=== PATIENT | female | born 1945 | race Caucasian/White ===

== ENCOUNTER 2016-12-31 11:30 | Inpatient (IN) | payer MEDICARE, OTHER ==
[~2016-12-31] VITALS: Ht 154.9 cm; Wt 100.9 kg
[~2016-12-31 11:30] MED LIST: ALBU8.5H2 INHALATION; BECL8.7A5 INHALATION; CHOL200047 PO; FURO40TA4 PO; INSU100V7 SUBQ; KEN25CR EXT; LOSA100T29 PO; METF-496 PO; METO25TA99 PO; VITA400C64 PO; ZOV800 PO
[2016-12-31 14:15] VITALS: BP 139/71; PULSE 45; RESP 16; O2SAT 95
--- NOTE | 2016-12-31 16:24 | NUR ---
Direct admit Pt. arrived to [facility] about 1350. VSS. Afebrile. See admit for assessment. IV started per tele protocol. BG 134. Denies chest discomfort, dizziness, SOB or any other symptoms. Tele SR-SB at this time. Dr. Dickson's office contacted for H+P and orders. H+P received but not orders. Report called to Lali Arnold RN. Transported to 2026 via w/c with all belongings at 1624.
[2016-12-31 16:36] VITALS: BP 177/83; PULSE 68; RESP 18; O2SAT 96
[2016-12-31 16:53] VITALS: PULSE 71
[2016-12-31 17:40] LABS: APPEARANCE,URINE HAZY (CLEAR,HAZY); COLOR,URINE YELLOW (YELLOW); OCCULT BLOOD,URINE NEGATIVE (NEGATIVE); PH,URINE 5.5 (5.0-8.0); UROBILINOGEN,URINE NORMAL (NORMAL)
[2016-12-31] MEDS ORDERED: 0.9% Sodium Chloride 1,000 ML IV PRN (17:56)
[2016-12-31] MEDS ORDERED: CeFAZolin Inj 1 GM in IV Premix 1 EACH IV ONE (18:00)
[2016-12-31] MEDS ORDERED: Alum-Mag Hydrox-Simeth 30 mL Suspension PO PRN (18:05)
[2016-12-31] MEDS ORDERED: Ondansetron 2 mg/mL 2 mL Inj IVPUSH PRN (18:05)
[2016-12-31 18:08] LABS: BASOPHILS % (AUTO) 0.3 % (0-3); EOSINOPHILS % (AUTO) 3.7 % (0-5); MONOCYTES % (AUTO) 6.7 % (4-12); Mean Corpuscular Hemoglobin 30.2 pg (27.0-35.0); Mean Corpuscular Volume 86.3 fL (81-100); NEUTROPHILS % (AUTO) 56.9 % (40-74); Platelet Count 231 bil/L (150-400)
[2016-12-31] MEDS ORDERED: INSU100I18 SUBQ (18:08)
[2016-12-31] MEDS ORDERED: COLC0.6T55 PO (18:08)
[2016-12-31] MEDS ORDERED: ATOR40TA69 PO (18:08)
[2016-12-31] MEDS ORDERED: CLOP75TA28 PO (18:08)
[2016-12-31] MEDS ORDERED: INSU100I13 SUBQ (18:08)
[2016-12-31 18:10] LABS: INR 0.98 ratio
[2016-12-31] MEDS ORDERED: LOSA25TA21 PO (18:10)
[2016-12-31] MEDS ORDERED: TIOT18CA3 INHALATION (18:12)
[2016-12-31] MEDS ORDERED: OMEG1CAP99 PO (18:13)
--- NOTE | 2016-12-31 18:21 | NUR ---
Admit Pt admitted to [facility] at 1730. A&O X3. Answering questions appropriately and able to make needs known. IV in L hand patent. On RA. CBG 78. Pt ambulated easily from the wheelchair to the bed. Steady on her feet. Also ambulated to the toilet where she voided with no issue. Last BM yesterday. No c/o pain or discomfort.
[2016-12-31] MEDS ORDERED: ACET325C PO (18:23)
[2016-12-31] MEDS ORDERED: ASPI-973 PO (18:23)
--- NOTE | 2016-12-31 19:29 | NUR ---
Cefazolin Order was entered for Cefazolin IV to be given tonight. This RN received verbal order from to NOT give the IV Cephazolin tonight since she will be getting it tomorrow (01/01) just prior to her procedure along with NS. This info also passed along to NOC RN.
[2016-12-31 20:32] VITALS: BP 135/81; PULSE 70; RESP 19; O2SAT 93
--- NOTE | 2016-12-31 22:20 | HP ---
[address] [address] HISTORY AND PHYSICAL PATIENT: JOSH APONTE : 1945 MR#: [id number] ADMIT: 12/31/2016 JOB ID: [id number] DATE: 12/31/2016 REASON FOR ADMISSION: Sick sinus syndrome. HISTORY OF PRESENT ILLNESS: The patient is a delightful 71-year-old woman with a known history of severe critical aortic stenosis status post TAVR approximately six months ago, history of hypertension and diabetes who was seen in the office for new onset second-degree type II AV block. The patient underwent a transcutaneous aortic valve replacement procedure approximately six months ago at [facility]. She was undergoing cardiac rehab when she was noted to have second-degree type II AV block in the setting of sinus bradycardia. I received a phone call from the cardiac rehab service line nurse who informed me about her condition. I advised her to come back and see me in the office today. In the office, she reported no significant symptoms of dizziness, presyncope or syncope, however, she did report overall lethargy and fatigue. She was evaluated in the office and to further assess her underlying rhythm, an exercise treadmill stress test was ordered. She was noted to have an elevated blood pressure of 180/80. An exercise treadmill stress test was performed. She barely walked for 2-3 minutes. She had an underlying sinus rhythm. An alternating right bundle-branch block and left bundle-branch block was noted. At high rates, a left bundle-branch block was noted. There were episodes of transient second-degree AV block 2:1. Patient could not increase her heart rate and was significantly fatigued and tired and short of breath. Given she has a history of TAVR, I suspected sick sinus syndrome with chronotropic incompetence. At that time, several options were discussed with the patient. The patient first preferred that she would stop her beta donavon, however, given her abnormal stress test, we gave her the option of option of admission to the hospital for permanent pacemaker implantation. Given a history of TAVR, there is a high likelihood of AV node involvement secondary to prosthetic valve in the aortic annulus. Given that, she was asked to go to [facility]. ALLERGIES: 1. VENLAFAXINE. 2. HYDROCODONE. PAST MEDICAL HISTORY: Significant for severe critical aortic stenosis, insulin-requiring diabetes, hypertension, obesity. CURRENT MEDICATIONS: 1. Losartan 50 mg daily. 2. Metformin 1000 mg 1 tablet two times every day. 3. Metoprolol 12.5 mg two times daily. 4. Acyclovir 800 mg 3 times daily. 5. Albuterol inhaler two puffs every 4-6 hours. 6. Spiriva 1 capsule inhalation daily. 7. Clopidogrel 75 mg daily. 8. Atorvastatin 40 mg daily. 9. Aspirin 81 mg daily. 10. Insulin Lantus 40 units subcu q.h.s. 11. Insulin lispro 4-6 units subcutaneous b.i.d. 12. Vitamin D3 2000 units daily. PAST SURGICAL HISTORY: TAVR June 2016. REVIEW OF SYSTEMS: Significant for overweight, history of fatigue, tiredness, lethargy, shortness of breath. EXAMINATION: Vital signs: Blood pressure is 135/81, pulse of 70. Alert, oriented, not in any distress. Pupils are normal size, normal reaction. Oral: Dental hygiene is marginal. She is edentulous. Neck is soft, supple. There is no lymphadenopathy. There is a soft carotid bruit bilaterally. Chest wall is normal. There is mild kyphoscoliosis. S1-S2 is normal. Prosthetic valve at aortic position. There is a soft systolic murmur in early to mid systole. Abdomen is soft, benign, and nontender. No hepatosplenomegaly. Bowel sounds are present. No organomegaly. Lower extremities are trace pedal edema bilaterally. ASSESSMENT: 1. Sick sinus syndrome. This is a 71-year-old woman status post transcatheter aortic valve replacement (TAVR) six months ago who presented with incidental finding of symptomatic type 2 secondary arteriovenous block with alternating right and left bundle-branch block with activity. Patient has chronotropic incompetence in the setting of sinus bradycardia. Given these findings of fatigue, tiredness and lethargy, the patient was given the option of a permanent pacemaker implantation. Patient takes a very low dose of beta donavon of 12.5 mg XL 1-2 times daily. In addition, she has a wide QRS complex with a QRS duration of 141, consistent with infranodal disease. Typically after TAVR there are 10% cases where people develop AV blocks requiring pacemaker implantation, but that is mostly in the licha-procedural duration. Patient had her TAVR done approximately six months ago. This might be the underlying sick sinus syndrome with association of the infranodal conduction disease as evidenced by AV block, wide QRS complex and alternating right and left bundle-branch block. I went over the risks and benefits of the procedure and gave her the option of permanent pacemaker. The patient wishes to proceed. All the risks and benefits of the procedure were explained to the patient and informed signed consent was obtained and placed in the chart. 2. Hypertension. The patient is currently well controlled on the current medical regimen and does not take any further modifications. 3. Mixed hyperlipidemia. Currently on medication. 4. Type 2 diabetes, insulin-requiring. Her recent hemoglobin A1c is not available. However, Accu-Chek is 104 this evening. I advised her to hold off on her Lantus dose this evening. Patient is to go for procedure tomorrow in the morning. 5. Chronic obstructive pulmonary disease on bronchodilators, clinically stable and quiescent. No further intervention is required at this point. PLAN: 1. Admit to the hospital. Preprocedure orders were given and placed in the chart. Ancef during the periprocedural hydration to be administered, 1 g of Ancef. 2. Patient to hold off on beta blockers. 3. All labs are ordered. Lab results are pending at this time. [facility]
[2017-01-01] VITALS (17 sets, daily range): BP systolic 123–166; BP diastolic 55–91; PULSE 43–85; RESP 12–19; O2SAT 93–98
[2017-01-01] MEDS: Sodium Chloride LOK Flush 10 mL Syringe IVFLUSH SCH ×3 (00:30→16:30)
[2017-01-01] MEDS ORDERED: Heparin 10,000 Unit/1,000 mL NS Premix IV ONE (07:39)
[2017-01-01] MEDS ORDERED: Bupivacaine-MPF 0.5% 30 mL Inj ONE (07:39)
[2017-01-01] MEDS ORDERED: 0.9% Sodium Chloride 250 ML ONE (07:39)
--- NOTE | 2017-01-01 07:45 | NUR ---
Tele/Restful Night Pt tele SBrady w/ rate mostly 40s-60s while pt slept. Pt denies symptoms with this. All other vitals stable. Pt denied pain and appeared to sleep comfortably overnight w/ only complaint being discomfort from bed. 2L NC applied at HS.
[2017-01-01] MEDS ORDERED: fentaNYL-PF 50 mCg/mL 2 mL Inj ONE ×2 (08:29→10:00)
[2017-01-01] MEDS ORDERED: 0.9% Sodium Chloride 1,000 ML IV SCH (11:11)
[2017-01-01] MEDS ORDERED: Ondansetron 2 mg/mL 2 mL Inj IVPUSH PRN (11:15)
--- NOTE | 2017-01-01 11:38 | DRSVH ---
PROCEDURE: X-RAY CHEST ONE VIEW, PORTABLE ([id number]) INDICATIONS: post pacemaker TECHNIQUE: One view of the chest was acquired. COMPARISON: None. FINDINGS: Surgical changes and devices: None. Lungs and pleura: No pleural effusions or pneumothorax. Lungs are clear. Mediastinum: Mediastinal contours appear normal. Heart size is normal. Postoperative changes of th e heart are present with heart valve replacement noted. Bones and chest wall: No suspicious bony lesions. Overlying soft tissues appear unremarkable. IMPRESSION: Essentially unremarkable chest rated graft. No definite pneumothorax is evident. Dictated by: Ko Deleon M.D. on 01/01/2017 at 10:36 Approved by: Ko Deleon M.D. on 01/01/2017 at 10:37
--- NOTE | 2017-01-01 11:47 | NUR ---
DR COVARRUBIAS HERE TO EVALUATE PATIENT.CXR NEGATIVE FOR PNEUMOTHORAX, ALSO CALLED TO PHYSICIAN ATTENTION, THE SWELLING NOTED AT THE LEFT UPPER CHEST SITE, AREA MARKED, PRESSURE DRESSING IS IN PLACE AND 5 LB WEIGHT PLACED ON TOP OF THAT. PT ALSO C/O CENTER CHEST PAIN WITH PAIN THROUGH LEFT BREAST TO LEFT NIPPLE ON DEEP INSPIRATION. DR COVARRUBIAS APPRISED OF THIS.LUNCH ORDERED FOR PATIENT.
[2017-01-01] MEDS: HYDROcodone-APAP 5-325 mg Tablet PO PRN (12:37)
--- NOTE | 2017-01-01 13:04 | NUR ---
Report called to Juan Antonio Stanford R.N. She is stable, left pacemaker site swelling is improved, vicodin given for pain.
--- NOTE | 2017-01-01 13:30 | NUR ---
Patient tx in stable condition.[facility] to [facility] at [facility], swelling at left upper chest pacemaker attempted side is unchanged.
--- NOTE | 2017-01-01 13:52 | NUR ---
Social Work: Initial Assessment D: Per EMR review, pt is a 71 year old female admitted for AVB. Pt is Medicare with [employer]; pt has no LTC insurance. PCP is Tin Matias MD. CHRISTINA Costa, spouse, . Pt declined Advanced Directives from LACQUER SHADER. Readmit score is low, 2/8. LACQUER SHADER met with pt and spouse at bedside. Sw role explained and contact info provided. See initial assessment. Pt lives in a single story home in [place] with her spouse. Pt has approximately 10 steps to enter. Pt has never had HH or skilled rehab. Pt continues to drive and is I with ADLs. Pt and spouse express no concerns about discharge home. Pt is requesting to speak with the pipe crew foreman. LACQUER SHADER provided referral to [facility]. A: Pt who is I at baseline. P: Anticipate pt to discharge home with spouse to transport pending clinical course; LACQUER SHADER to continue to follow. JOSE CARLOS Thomas Addendum: 01/01/17 at 1400 by PEDRO DUNBAR Amended: Links added.
--- NOTE | 2017-01-01 14:02 | PROCED ---
[address] [address] PROCEDURE NOTE PATIENT: JOSH APONTE : 1945 MR#: [id number] ADMIT: 12/31/2016 JOB ID: [id number] DATE OF SERVICE: PREOPERATIVE DIAGNOSIS(ES): POSTOPERATIVE DIAGNOSIS(ES): SURGEON: Socrates Dickson MD. PROCEDURE: 1. Dual-chamber permanent pacemaker implantation. 2. Ultrasound-guided venous access. 3. Contrast venography of the subclavian vein. CONSENT: The patient was explained the risks, benefits and alternatives of the procedure. Informed signed consent was obtained and placed in the chart. INDICATION: The patient is a 71-year-old woman with a post TAVR (aortic valve replacement). Developed transient second-degree type 2 AV block, alternating right and left bundle branch block, with symptoms of fatigue, tiredness and exertional shortness of breath. She also demonstrated chronotropic incompetence on the exercise treadmill stress test. DESCRIPTION OF PROCEDURE: The patient was brought to the catheterization laboratory and placed on the catheterization table. Left infraclavicular area was prepped and draped in the usual sterile manner. Ultrasound mapping was performed. I could not visualize her veins. Therefore, contrast venography was performed. Multiple attempts were made to access the subclavian vein but the left subclavian vein could not be accessed. Subsequently, after achieving topical anesthesia, a 3-inch long surgical incision was made. Skin and subcutaneous layer were dissected. Prepectoralis fascia was identified. Again, I did several attempts to access the subclavian vein through a pacemaker pocket and could not access it. Repeat contrast venography was performed. However the attempts to access the left subclavian vein were unsuccessful. The procedure was aborted. The pacemaker pocket was irrigated with antibiotic solution. The tissue was closed with 2-0 Polysorb sutures. The skin was closed with 3-0 Polysorb sutures. The pressure dressing was applied. The postprocedure x-ray demonstrated no evidence of pneumothorax. Total fluoroscopy time was 19.3 minutes. IMPRESSION: Unsuccessful subclavian vein access with discontinuation of the procedure.
--- NOTE | 2017-01-01 15:04 | NUR ---
PCC Patient departed at 0830 to [facility] to have pacer placed, returned 1330 from unsuccessful placement. Pressure dressing on upper left chest with ice pack c/d/i, placed at 1100 in [facility] to be removed at 1600. Patient given Tylenol 975mg for 5/10 pain, NS at 80mls started for kidney hydration. Patient denies shortness of breath and nausea, eat in [facility] without issues, will be NPO at midnight for Venogram tomorrow at 1230. LABS- Cr 1.38, BUN 32 CVS- SB 40-60 PLUM-RA GI- NPO at midnight, no coverage needed for blood sugars - UA (+) SKIN- Lower bilat edema trace PAIN- 5/10 anterior left shoulder IV NS 80 PLAN- See above note.
[2017-01-01] MEDS: 0.9% Sodium Chloride 1,000 ML IV SCH (17:05)
[2017-01-01] MEDS: Polyethylene Glycol (PEG) 17 Gm Powder PO PRN (20:06)
[2017-01-01] MEDS ORDERED: CeFAZolin Inj 1 GM in IV Premix 1 EACH IV ONE (21:30)
--- NOTE | 2017-01-01 23:00 | NUR ---
Ancef Dr. Dickson called and wanted pt to have Ancef IV dose tonight, he ordered it and was given around 2229.
[2017-01-02] VITALS (8 sets, daily range): BP systolic 136–153; BP diastolic 50–82; PULSE 48–67; RESP 15–19; O2SAT 92–99
[2017-01-02] MEDS: Sodium Chloride LOK Flush 10 mL Syringe IVFLUSH SCH ×4 (00:30→23:51)
[2017-01-02] MEDS: 0.9% Sodium Chloride 1,000 ML IV SCH (04:01)
[2017-01-02] MEDS ORDERED: 0.9% Sodium Chloride 1,000 ML IV PRN (07:29)
[2017-01-02] MEDS ORDERED: CeFAZolin Inj 2 GM in IV Premix 1 EACH IV ONE ×2 (07:30→08:35)
--- NOTE | 2017-01-02 08:14 | PROG NOTE ---
[address] [address] PROGRESS NOTE PATIENT: JOSH APONTE : 1945 MR#: [id number] ADMIT: 12/31/2016 JOB ID: [id number] DATE: 01/02/2017 PROBLEM LIST: 1. Sick sinus syndrome. 2. Failure to access the subclavian vein on January 01, 2017. 3. Status post transcatheter aortic valve replacement (TAVR). 4. Hypertension. 5. Diabetes. 6. Hyperlipidemia. INTERVAL HISTORY: The patient underwent permanent pacemaker implantation yesterday. At the time of procedure, we made several attempts to access the left subclavian vein. We were unsuccessful in accessing the left subclavian vein. Both ultrasound guidance was used as well as radio contrast venography. The patient tolerated the procedure well. She had a pacemaker pocket hematoma. Pressure dressing was applied. The patient was observed. Postprocedure chest x-ray demonstrated no pneumothorax. The patient is scheduled for repeat chest x-ray this morning. On asking, she states that she is doing well. She has some catch when she takes a deep breath. The swelling has significantly reduced. Feeling better. She is sitting up on the chair. In addition to her medications, I gave her a dose of Ancef last night. In addition, I started her on IV fluids. She is feeling well, and she is urinating copious amounts. PHYSICAL EXAMINATION: Vital signs: Blood pressure of 153/82, pulse of 54, regular. No significant pauses or bradyarrhythmias are noted. Chest is clear to auscultation. There is bilateral breath sounds noted. S1, S2 is regular. There is a systolic murmur heard in the right upper sternal area. The abdomen is benign. Lower extremities: Trace pedal edema. PLAN: For the day, she is n.p.o. on-call for pacemaker implantation this afternoon. She is going to get a left subclavian ultrasound with surface mapping. Once mapping is performed, I will perform the permanent pacemaker implantation. The device company has been notified. TIME SPENT: Total time spent, 25 minutes, in reviewing and coordinating her care. ASUL
[2017-01-02] MEDS ORDERED: 0.9% Sodium Chloride 250 ML ONE ×2 (12:18→17:19)
[2017-01-02] MEDS ORDERED: Heparin 10,000 Unit/1,000 mL NS Premix IV ONE ×3 (12:18→17:16)
[2017-01-02] MEDS ORDERED: Water for Injection 50 ML IV ONE (12:18)
[2017-01-02] MEDS ORDERED: Bupivacaine-MPF 0.5% 30 mL Inj ONE ×2 (12:18→17:19)
[2017-01-02] MEDS ORDERED: Albuterol-Ipratropium 3 mL Inhalation Solution ONE (12:49)
[2017-01-02] MEDS: Tiotropium 18mcg/Cap 5 Capsule Inhaler Kit INHALATION SCH (13:20)
--- NOTE | 2017-01-02 13:23 | DRSVH ---
PROCEDURE: X-RAY CHEST ONE VIEW, PORTABLE ([id number]) INDICATIONS: SHORT OF BREATH TECHNIQUE: One view of the chest was acquired. COMPARISON: [facility], CR, XR CHEST 1VW (PORTABLE), 01/01/2017, 11:14. FINDINGS: Surgical changes and devices: None. Lungs and pleura: No pleural effusions or pneumothorax. Lungs are clear. Mediastinum: Mediastinal contours appear normal. Heart size is normal. Bones and chest wall: No suspicious bony lesions. Overlying soft tissues appear unremarkable. IMPRESSION: Stable chest. No acute cardiopulmonary process is suspected. Dictated by: Ko Deleon M.D. on 01/02/2017 at 12:21 Approved by: Ko Deleon M.D. on 01/02/2017 at 12:21
[2017-01-02] MEDS ORDERED: Albuterol-Ipratropium 3 mL Inhalation Solution NEB ONE (13:25)
[2017-01-02] MEDS ORDERED: fentaNYL-PF 50 mCg/mL 2 mL Inj ONE ×4 (13:30→17:48)
--- NOTE | 2017-01-02 13:38 | NUR ---
spiritual care; routine brief visit and prayer as pt apprehensive about procedure (cath) pt appreciative of eucharsitc visitor support.
[2017-01-02] MEDS ORDERED: Phenylephrine/NS-PF 100 mCg/mL 5 mL Syringe IVPUSH ONE (15:32)
[2017-01-02] MEDS ORDERED: DOPamine 800 mg/250 mL D5W Premix IV ONE (16:07)
--- NOTE | 2017-01-02 16:13 | NUR ---
spiritual care: rapid response/blue supportive accompaniment as pt rec care, arturo araujo in dong waiting area. staff aware and updating him.
[2017-01-02] MEDS ORDERED: Atropine 1 mg/10 mL (Code) Syringe ONE (17:16)
[2017-01-02] MEDS ORDERED: 0.9% Sodium Chloride 50 ML ONE (17:20)
--- NOTE | 2017-01-02 22:16 | DRSVH ---
PROCEDURE: X-RAY CHEST ONE VIEW, PORTABLE ([id number]) INDICATIONS: For new leads placed TECHNIQUE: One view of the chest was acquired. COMPARISON: [facility], CR, XR CHEST 1VW (PORTABLE), 01/02/2017, 13:05. FINDINGS: Surgical changes and devices: There is a new left chest wall dual-lead pacemaker the leads projecting over the right atrium and right ventricle. There is also a new curvilinear catheter projecting over the left cardiac contour. Lungs and pleura: There is a small left apical pneumothorax measuring approximately 4 mm. Blunting of the left costophrenic angle is again noted compatible with a small pleural effusion or pleural thi ckening. Mediastinum: Mediastinal contours appear unchanged. Heart size is normal. Bones and chest wall: No suspicious bony lesions. Overlying soft tissues appear unremarkable. IMPRESSION: 1. Small left apical pneumothorax. 2. New pacemaker leads projecting over the right atrium and right ventricle. Findings discussed with Dr. Dickson on 01/02/17 at 10:10 PM. Dictated by: Shayne Jung M.D. on 01/02/2017 at 22:08 Approved by: Shayne Jung M.D. on 01/02/2017 at 22:14
--- NOTE | 2017-01-02 22:18 | NUR ---
Admit note: Pt arrived to room 2019 at approx 1910 per bed from collaborative physician. Pt is Awake alert/orientated c/o left upper chest pain to pacer surgical site. Ice packs were applied to site and pain improving. in room on arrival. monitor applied shows A-paced rhythm. Pt has pericardial drain in place with bloody drainage noted.
[2017-01-03] VITALS (7 sets, daily range): BP systolic 119–134; BP diastolic 54–66; PULSE 60–86; RESP 15–24; O2SAT 92–96
--- NOTE | 2017-01-03 06:49 | NUR ---
pericardial drain/ECG: Pt's rhythm had V-paced and A-paced complex during the night. pericardial drain had minimal output.
[2017-01-03] MEDS: Polyethylene Glycol (PEG) 17 Gm Powder PO PRN ×2 (07:50→22:05)
[2017-01-03] MEDS: HYDROcodone-APAP 5-325 mg Tablet PO PRN ×3 (07:50→16:09)
[2017-01-03] MEDS: Sodium Chloride LOK Flush 10 mL Syringe IVFLUSH SCH ×2 (07:51→16:10)
[2017-01-03] MEDS: CeFAZolin Inj 1 GM in IV Premix 1 EACH IV SCH ×3 (08:01→16:09)
[2017-01-03] MEDS: Tiotropium 18mcg/Cap 5 Capsule Inhaler Kit INHALATION SCH (08:02)
--- NOTE | 2017-01-03 09:55 | DRSVH ---
[facility] [address] [place] [address] Echocardiogram Report Name: JOSH APONTE MStudy [facility] Location: [facility] Gender: Female : 1945 Age: 71 yrs Reason For Study: PERICARDIAL EFFUSION Ordering Physician: Performed By: Evie Polo Interpretation Summary Limited echo performed by Dr. Reed. Only subcostal views obtained due to difficult window. 1. Large pericardial effusion with tamponade physiololgy. Right atrial and ventricular collapse noted. Procedure: This is a lilmited echocardiogram performed in the [employer]. Image quality is poor. The study quality was technically difficult. Pericardium/ Pleura There is a moderate to large pericardial effusion noted. Pericardial effusion is improved s/p pericardial centesis. Electronically signed by: Dr. Socrates Dickson on Reading Physician:01/03/2017 09:54 AM
--- NOTE | 2017-01-03 11:45 | DRSVH ---
PROCEDURE: X-RAY CHEST, TWO VIEWS ([id number]) INDICATIONS: For new lead placement TECHNIQUE: 2 views of the chest were acquired. COMPARISON: [facility], CR, XR CHEST 1VW (PORTABLE), 01/02/2017, 20:33. FINDINGS: Surgical changes and devices: Newly cardiac pacer and stent projecting of the heart are unchanged. Pi gtail catheter, again projects over the heart Lungs and pleura: No pleural effusions or pneumothorax. Lungs are clear. Mediastinum: Mediastinal contours are normal. Heart size is normal. Bones and chest wall: No suspicious bony abnormalities. Soft tissues appear unremarkable. IMPRESSION: Previously identified small left apical pneumothorax not visualized on the current examination. Dictated by: Gonzalez Pierce M.D. on 01/03/2017 at 11:41 Approved by: Gonzalez Pierce M.D. on 01/03/2017 at 11:44
[2017-01-03] MEDS: Insulin LISPRO Low-Dose Scale SUBQ SCH ×3 (12:49→22:00)
--- NOTE | 2017-01-03 14:14 | PROCED ---
[address] [address] PROCEDURE NOTE PATIENT: JOSH APONTE : 1945 MR#: [id number] ADMIT: 12/31/2016 JOB ID: [id number] DATE OF SERVICE: 01/02/2017 POSTOPERATIVE DIAGNOSIS(ES): PREOPERATIVE DIAGNOSIS(ES): SURGEON: Socrates Dickson MD. PROCEDURE: Pericardiocentesis. INDICATIONS: Pericardial tamponade. CONSENT: No consent was obtained during this procedure as this was a life-saving procedure. The patient was undergoing a dual-chamber permanent pacemaker implantation when she became suddenly hypotensive. Blood pressure recorded was 70/40. Subsequently her blood pressure was unrecordable. Patient was fluid resuscitated with 2 L of normal saline. Jose-Synephrine was administered. Phenylephrine was administered as well. The ultrasound was requested. Pericardial tamponade with right atrial and right ventricular collapse was noted. The subxiphoid area prepped and draped in usual sterile manner. One percent lidocaine was infiltrated and topical anesthesia was obtained. Using a micropuncture needle, the pericardial sac was accessed and hemorrhagic blood was noted in the syringe. Subsequently a wire was inserted through the access needle into the pericardial sac. Subsequently a J-wire was inserted in the pericardial sac. Multiple dilators, size 5, 9, and 10 were used. Subsequently, a pigtail catheter was advanced under direct fluoroscopy into the pericardial sac. Three hundred cc of hemorrhagic pericardial fluid was obtained. Her blood pressure returned to normal at 111/74. IMPRESSION: Successful pericardiocentesis of postprocedure complications. SAUL
--- NOTE | 2017-01-03 14:40 | PROCED ---
[address] [address] PROCEDURE NOTE PATIENT: JOSH APONTE : 1945 MR#: [id number] ADMIT: 12/31/2016 JOB ID: [id number] DATE OF SERVICE: 01/02/2017 SURGEON: Socrates Dickson M.D. PREOPERATIVE DIAGNOSIS(ES): POSTOPERATIVE DIAGNOSIS(ES): PROCEDURE: Dual-chamber permanent pacemaker implantation. INDICATIONS: Sick sinus syndrome. CONSENT: The patient was explained the risks, benefits and alternatives of the procedure. Informed signed consent was obtained and placed in the chart. DESCRIPTION OF PROCEDURE: The patient was brought to the cath laboratory and placed on the cath table. The left infraclavicular area was prepped and draped in the usual sterile manner. The left subclavian vein was accessed by Dr. Toure using standard technique. After the access was obtained, lidocaine 1% was infiltrated to achieve topical anesthesia. Subsequently, a 3-inch longer surgical incision was given. The skin and subcutaneous layer was dissected. The pacemaker J-wire was released of the tissue and brought into the pacemaker pocket. The pacemaker pocket was further dissected and the prepectoral fascia was identified. With a gentle roll of a finger, the subcutaneous tissue was from the prepectoralis fascia. A venous sheath was advanced under direct fluoroscopy over the J-wire. Subsequently, a second J-wire was inserted and the venous sheath was removed. A separate venous sheath was inserted over the J-wire into the left subclavian vein. A 52 cm angiolytic [employer] was inserted under direct fluoroscopy. The pacemaker wire was advanced into the right ventricular outflow tract. A curved stylus was exchanged with a straight stylus. The pacemaker lead was allowed to fall into the RV apex. It was actively fixated into the to the RV apex. Good sensing and pacing parameters were obtained. The venous sheath was peeled off the right ventricular lead and the right ventricular lead was anchored to the prepectoralis fascia using the sleeve. The second venous sheath was advanced over the J wire, and placed in the left subclavian vein. The J-wire was removed and the right atrial lead was inserted through the second venous sheath. The right atrial lead was further advanced into the right atrium. A preformed stylus was inserted and it was placed in the right atrial appendage. At that time, the patient became suddenly hypertensive and her blood pressure was recorded at 71. Then the patient became pulseless, weak and thready. At that time the pacemaker procedure was stopped. Pericardial tamponade was suspected. Immediately an echo was obtained and she had a pericardial tamponade. Please see the separate dictation for pericardiocentesis. After the drain was placed in the pericardial sac, the patient became hemodynamically stable. The right atrial lead was anchored, was actively fixated into the right atrial appendage. The preformed stylus was withdrawn and the venous sheath was peeled off the right atrial lead. Subsequently, right atrial lead was anchored to the prepectoralis fascia. Good sensing and pacing parameters were obtained. Subsequently, the right atrial and the right ventricular lead were connected to the [employer] generator, [employer] MRI, model L311, serial #[id number]. The generator was anchored to the prepectoral fascia. Before the placement of the generator, the pacemaker pocket was liberally irrigated with antibiotic solution. The patient remained hemodynamically stable. The generator was placed in the pacemaker pocket and good hemostasis was noted. No bleeding hematoma was noted as well. The pacemaker pocket was closed with nonabsorbable sutures and the skin and subcuticular layer was closed with 4-0 absorbable sutures. The patient was subsequently taken out of the cath laboratory in stable condition. Additionally she had a pericardial drain originating from the subxiphoid area. DEVICE PARAMETERS: The right atrium intrinsic amplitude of 3.0 mV, impedance 550 ohms. Pacing threshold was 1.2 V at 40 msec. Right ventricle intrinsic amplitude of 18 mV, pacing impedance of 700 ohms. Threshold of 0.6 V at 40 msec. The lower rate set at 60 pulses per minute, maximum tracking rate of 140. Paced AV delay of 150-200 msec. Pacing output atrium 3.5 V, ventricle 3.5 V. Sensitivity 0.5 V in the atrium and 2.5 mV in the ventricle. DEVICE IDENTIFICATION: [employer] device Accolate MRI, L311, serial #[id number]. COMPLICATIONS: Hemopericardium with tamponade physiology status post pericardial drain. IMPRESSION: Successful dual-chamber permanent pacemaker implantation.
[2017-01-03] MEDS ORDERED: LORazepam 0.5 mg Tablet PO ONE (19:20)
[2017-01-03] MEDS: MeTOProlol XL 25 mg ER24 Tablet PO SCH (20:18)
[2017-01-03] MEDS: Insulin GLARgine 100 Unit/mL Syringe SUBQ SCH (22:04)
[2017-01-04] VITALS (7 sets, daily range): BP systolic 102–123; BP diastolic 46–67; PULSE 78–104; RESP 19–25; O2SAT 92–96
[2017-01-04] MEDS: Sodium Chloride LOK Flush 10 mL Syringe IVFLUSH SCH ×3 (00:30→16:41)
[2017-01-04] MEDS: CeFAZolin Inj 1 GM in IV Premix 1 EACH IV SCH ×3 (01:35→16:42)
--- NOTE | 2017-01-04 05:59 | NUR ---
Activity: Pt was up to bedside commode with standby assist. Pt pass large amount gas which relieved epigastric discomfort. While pt was up rhythm was V-paced at rate 90-120s with activity. while sleeping or at rest rhythm was V-paced at a rate of 70-80s.
[2017-01-04] MEDS: Insulin LISPRO Low-Dose Scale SUBQ SCH ×4 (08:44→21:22)
[2017-01-04] MEDS: Tiotropium 18mcg/Cap 5 Capsule Inhaler Kit INHALATION SCH (08:45)
[2017-01-04] MEDS: MeTOProlol XL 25 mg ER24 Tablet PO SCH ×2 (08:46→20:25)
--- NOTE | 2017-01-04 13:23 | PROG NOTE ---
[address] [address] PROGRESS NOTE PATIENT: JOSH APONTE : 1945 MR#: [id number] ADMIT: 12/31/2016 JOB ID: [id number] DATE: 01/04/2017 DAILY PROGRESS NOTE: This is hospital day five, status post dual chamber pacemaker implantation, status post pericardiocentesis and pericardial drain placement after pericardial tamponade, status post apical pneumothorax which has resolved. SUBJECTIVE: Patient was resting comfortably this morning. The nurse called yesterday to report that the patient was experiencing chest pain. I ordered an EKG and troponin which were normal. The pain has since resolved. OBJECTIVE: Blood pressure 102/67, pulse 82, and she is V pacing. Respirations 16. The pacemaker incision is clean, dry, and intact. There is no crepitus at the incision site, right chest, or neck. Lungs are clear to auscultation. Auscultation of the heart reveals normal S1 and S2. I did not appreciate any murmurs, clicks, or rubs. Pericardial drain entry site is clean, dry, and intact. About 155 cc of serosanguineous fluid drained overnight. Peripheral edema has improved. She continues to have mild swelling in the hands. There is no lower extremity edema. LABORATORY RESULTS: Three troponins were done yesterday and they were all normal. EKG: The patient is V pacing at 100%. Otherwise, the EKG was unremarkable. PACEMAKER INTERROGATION RESULTS: Right atrial sensing 6.7 mV, right ventricular sensing at 24.0 mV, right atrial impedence 611, right ventricular impedance 721, right atrial threshold 0.6 V at 0.4 msec, right ventricular threshold 0.6 V at 0.4 msec. MICROBIOLOGY: PCR revealed no nasal MRSA. Urine culture showed mixed urogenital bob. IMPRESSION AND PLAN: 1. Status post dual chamber pacemaker implantation: Pacing and sensing parameters are within normal limits. Pneumothorax is resolved. Incision is clean, dry, and intact. We will continue to monitor. 2. Hemopericardium: There continues to be drainage of serosanguineous fluid. Complete Echo to be done tomorrow. Continue to monitor. 3. Activity: The nurse reports that patient is up and out of bed from time to time and able to get to the bathroom. As such, we will remove her Velasco and encourage her to continue to be out of bed if possible. 4. Diet: Continue heart healthy, constant carb diet. 5. Status post transcatheter aortic valve replacement: Just continue aspirin and Plavix. MTDD
--- NOTE | 2017-01-04 15:23 | NUR ---
Patient status Progressing towards planned outcomes. Minor pain reported at pacemaker insertion site, denies need for pain medication at this time. Ice pack in place for patient comfort. Small amount of serosanguineous fluid output from pericardial drain. V-paced per oil pit attendant. HR 70s to 80s at rest, 100s to 110s with activity. Normotensive. Oxygen saturation > 92% on 1L 02. Denies SOA. Pulmonary hygiene encouraged while awake. Up to chair this afternoon, and marching in place by bedside. Tolerating increased activity. Krista d/c. Will continue to monitor.
[2017-01-04] MEDS: Insulin GLARgine 100 Unit/mL Syringe SUBQ SCH (21:21)
[2017-01-05] VITALS (7 sets, daily range): BP systolic 93–134; BP diastolic 45–65; PULSE 60–77; RESP 18–25; O2SAT 94–98
[2017-01-05] MEDS: CeFAZolin Inj 1 GM in IV Premix 1 EACH IV SCH ×3 (00:17→17:27)
[2017-01-05] MEDS: Sodium Chloride LOK Flush 10 mL Syringe IVFLUSH SCH ×3 (00:17→16:30)
--- NOTE | 2017-01-05 06:16 | NUR ---
activity/pacer: Pt rhythm mostly throughout the night has been V-paced with occasional A/V- paced rhythm. Pt was up to bedside commode steady on feet.
[2017-01-05] MEDS: MeTOProlol XL 25 mg ER24 Tablet PO SCH ×2 (07:35→20:48)
[2017-01-05] MEDS: HYDROcodone-APAP 5-325 mg Tablet PO PRN ×3 (07:35→21:35)
[2017-01-05] MEDS: Tiotropium 18mcg/Cap 5 Capsule Inhaler Kit INHALATION SCH (07:36)
[2017-01-05] MEDS: Insulin LISPRO Low-Dose Scale SUBQ SCH ×4 (07:37→21:34)
--- NOTE | 2017-01-05 16:32 | NUR ---
Social Work Note: Continued Discharge Planning Data& Assessment: Per MD pt is not medically ready for discharge at this time. Pt still has drain placed. SW met with pt at bedside to check in and assess for any unmet needs. Pt explained she hasnt been able to walk around very much due to the drain but she is doing bed exercises and able to independently transfer to the bedside commode. Pt denies any other needs at this time. SW to continue to follow. Plan: Anticipated discharge home via PoV when medically ready. SW to follow to r/o home health or other PT needs after drain is removed and pt ambulation is evaluated. Pt denies any other needs at this time. SW to continue to follow. JOSE CARLOS Beck
--- NOTE | 2017-01-05 18:15 | DRSVH ---
[facility] [address] [place] [address] Echocardiogram Report Name: JOSH APONTE MStudy Date: Height: 61 in Hospital Exam Location: [facility] Weight: 223 lb Gender: Female BSA: 2. 0 m2 : 1945 Age: 71 yrs BP: 111 /52 mmHg Reason For Study: Pericardial Effusion Ordering Physician: Dr. Socrates DicksonPerformed By: Reanna Dietz Referring Physician: PHILIP MONTENEGRO Interpretation Summary 1. Normal LV size and function. 2. Moderate biatrial dilatation with intact inter-atrial septum. 3. Prosthetic aortic valve with normal pressure gradients. 4. Diastolic dysfunction with evidence of elevated filling pressure. 5. No pericardial effusion noted. History of drain in the pericardial sac s/p pericardial tamponade. Procedure: A two-dimensional transthoracic echocardiogram with color flow and Doppler was performed. The study quality was technically difficult. Comparison is made with the echocardiogram of 01-02-17. The patient has a paced rhythm. Left Ventricle: The left ventricle is normal in size, wall thickness, and systolic function without any focal wall motion abnormalities. The ejection fraction is estimated to be 60-65%. The E/A ratio is reversed with an elevated E/E', suggesting impaired early relaxation of the left ventricle with possible increased filling pressures. Right Ventricle: The right ventricle grossly appears normal in size with probable normal systolic function. Atria: The left atrium is moderately dilated. The right atrium is moderately dilated. Mitral Valve: The mitral valve leaflets appear mildly thickened, but open well. There is mild mitral annular calcification. There is no mitral regurgitation noted. Aortic Valve: There is a bioprosthetic aortic valve. No aortic regurgitation is present. Tricuspid Valve: The tricuspid valve is not well visualized, but is grossly normal. There is trace tricuspid regurgitation. Pulmonic Valve: The pulmonic valve is not well visualized. Great Vessels: The aortic root is normal size. Pericardium/ Pleura There is no pericardial effusion. There is no pleural effusion. MMode/2D Measurements & Calculations LVIDd: 3.9 cm LA dimension: 3.0 cm RA long axis LVOT diam LVIDs: 2.0 cm : 1.8 cm FS: 48.4 % LA A2 area: 26.7 cm RA area IVSd: 0.98 cm LA A4 area: 22.9 cm LVPWd: 0.84 cm LA length (vol): 5.6 cm : 22.8 cm LA vol: 92.3 ml RA vol: 90.4 ml RA LA vol index: 46.6 ml/m2: 45.7 mm2 LV martinez. diameter/BSA LV sys. diameter/BSA (cm/m^2): 2.0 (cm/m^2): 1.0 Doppler Measurements & Calculations Ao V2 max MV E max jayce MV E/A: 0.89 TR max jayce : 288.4 cm/sec : 127.5 cm/sec Med Peak E' Jayce : 208.1 cm/sec Ao max PG MV A max jayce TR max PG : 33.3 mmHg : 143.0 cm/sec E/E' med: 32.7 : 17.3 mmHg Ao mean PG MV P1/2t: 109.0 msec Lat Peak E' Jayce PA V2 max : 22.2 mmHg : 99.5 cm/sec LVOT Max Jayce E/E' lat: 20.9 PA mean PG : 93.8 cm/sec E/e' average ANANDA(I,D) PA Accel Time : 0.81 cm MV A dur: 0.19 sec: 0.10 sec sev ratio MV dec time MV P1/2t max jayce Ao V2 mean LV V1 max PG : 0.37 sec : 219.0 cm/sec Ao V2 VTI: 63.6 cmLV V1 VTI MVA(P1/2t): 2.0 cm2 : 20.5 cm ANANDA(V,D): 0.82 cm2 PA V2 mean ANANDA indexed to BSA : 66.8 cm/sec (cm^2/m^2): 0.41 Electronically signed by: Dr. Socrates Dickson on Reading Physician:01/05/2017 06:14 PM
--- NOTE | 2017-01-05 18:38 | NUR ---
Activity/TELE/pain/drain site Pt SBA up to chair for meals, denies any CP, SOB or dizziness with rising. TELE A/V, A or V paced with intrinsic beats, MD aware. Pericardial drain site C/D/I with no drainage at site, drain put out 50ml of serous fluid. Pacer site C/D/I, somewhat swollen and tender to touch. Using 2 vicodin for pain with good effect. See CCU flow sheet for vital trends.
--- NOTE | 2017-01-05 21:06 | PROG NOTE ---
[address] [address] PROGRESS NOTE PATIENT: JSOH APONTE : 1945 MR#: [id number] ADMIT: 12/31/2016 JOB ID: [id number] DATE: 01/05/2017 PROBLEM LIST: 1. Cardiac pacemaker in situ. 2. Status post iatrogenic hemopericardium, status post pericardial drains. 3. Hypertension. 4. Status post TAVR Lara Sapiens valve at aortic position. 5. Sick sinus syndrome. INTERVAL HISTORY: The patient underwent permanent pacemaker implantation on Thursday. During the procedure, she had a hemopericardium with tamponade physiology and hypotension. Vasopressors were started. Subsequently, a pericardial drain was placed. After stabilizing her hemodynamically, the patient had a dual-chamber permanent pacemaker implantation. The patient is currently A sensed, V pacing and doing really well and has no complaints. She feels better and feeling more energy. She is able to get up. She is currently being monitored and has a pericardial drain. The pericardial drain was 50 cc last shift. It is a serosanguineous fluid. She also developed a small pneumothorax which has essentially resolved. She also had an echocardiogram; results are pending today. PHYSICAL EXAMINATION: Vital signs: Her blood pressure is 134/84, pulse is 70 and regular. She is alert, oriented, not in any distress. Lung sounds: She has diminished breath sounds in the left lower base. S1-S2 is normal and regular. She has a soft systolic murmur. The incision site appears to be free of any redness, swelling or discharge. It is mildly-to moderately tender to touch. The lower extremities are free of any pedal edema. Pericardial drain 50 cc per shift. Hemoglobin HgA1C 6.6 with blood sugars within 100s-200s. Patient is taking her medications. She is currently on Ancef 1 g every 8 hours. PLAN: 1. Will follow up on the echo report tonight. 2. Continue measuring the serosanguineous discharge from the pericardial drain. 3. Removal of pericardial drain once the discharge is less. 4. Please call if there is any spike in fever. 5. Continue with same medications. No interval change at this time. TIME SPENT: Total time spent 25 minutes. [facility]
[2017-01-05] MEDS: Insulin GLARgine 100 Unit/mL Syringe SUBQ SCH (21:35)
[2017-01-06] VITALS (7 sets, daily range): BP systolic 89–119; BP diastolic 49–65; PULSE 60–62; RESP 14–19; O2SAT 95–99
[2017-01-06] MEDS: Sodium Chloride LOK Flush 10 mL Syringe IVFLUSH SCH ×3 (00:11→16:41)
[2017-01-06] MEDS: CeFAZolin Inj 1 GM in IV Premix 1 EACH IV SCH ×3 (00:11→16:40)
[2017-01-06 04:40] LABS: Mean Corpuscular Hemoglobin 28.9 pg (27.0-35.0); Mean Corpuscular Volume 88.7 fL (81-100)
--- NOTE | 2017-01-06 05:48 | NUR ---
Activity/rhythm: Pt is moving around better and having less pain. Oxygen demand is less. Pt most of the night has been 100% A-paced at 60.
[2017-01-06] MEDS: Insulin LISPRO Low-Dose Scale SUBQ SCH ×4 (08:00→21:11)
[2017-01-06] MEDS: Tiotropium 18mcg/Cap 5 Capsule Inhaler Kit INHALATION SCH (08:13)
[2017-01-06] MEDS: Polyethylene Glycol (PEG) 17 Gm Powder PO PRN (08:15)
[2017-01-06] MEDS: MeTOProlol XL 25 mg ER24 Tablet PO SCH ×2 (08:30→21:09)
--- NOTE | 2017-01-06 10:29 | NUR ---
NUTRITION Spoke with pt regarding meal selection. Pt had complaints regarding diabetic food selection. She states she hasn't been getting the food she wants. She doesn't want more than 4 inches of banana, she received 2 pieces of rye bread instead of 1 piece, she received chicken soup rather than chicken broth, and she wants broccoli instead of carrots. She also states she received regular jello rather than SF jello. Discussed consistent carb and heart healthy diet guidelines. Took patient food survey, received suggestions which will be passed onto the kitchen. If pt receives more food than desired, I encouraged her to not eat the extra food that she knows will affect her blood sugars. Will also communicate her desires to the kitchen.
--- NOTE | 2017-01-06 14:59 | NUR ---
spiritual care: follow up conversational visit. pt reflected on weekend medical events including her feelings and experiences during and following code. Pt animated, in good spirits and expressive of her shauna including her gratitude for book critic visit and prayer. pt agreeable for caring hull sorter visit
--- NOTE | 2017-01-06 17:36 | DRSVH ---
[address] [place] [address] Echocardiogram Report Name: JOSH APONTE MStudy Date: Height: 61 in Hospital Exam Location: [facility] Weight: 222 lb Gender: Female BSA: 2.0 m2 : 1945 Age: 71 yrs BP: 122/61 mmHg Reason For Study: Hypotension History: AVR Ordering Physician: Performed By: Cyndee Abel Interpretation Summary 1. Trivial pericardial effusion. Otherwise findings are unchanged. Procedure: A two-dimensional transthoracic echocardiogram with color flow and Doppler was performed in limited views only. The study quality was technically difficult. Comparison is made with the echocardiogram of 01/05/2017. The patient has a paced rhythm. Left Ventricle: The ejection fraction is estimated to be 60-65%. Right Ventricle: There is a pacemaker lead in the right ventricle. Pericardium/ Pleura There is a trivial pericardial effusion noted. There are no echocardiographic or Doppler indications for cardiac tamponade. MMode/2D Measurements & Calculations IVC diam: 1.7 cm Doppler Measurements & Calculations LVOT Max Jayce MV E max jayce MV E/A MV dec time : 115.4 cm/sec : 115.6 cm/sec : 0.96 : 0.40 sec MV A max jayce : 120.9 cm/sec LV V1 max P.4 mmHg LV V1 VTI: 28.3 cm Electronically signed by: Dr. Socrates Dickson on Reading Physician:01/06/2017 05:35 PM
--- NOTE | 2017-01-06 18:47 | NUR ---
Drain: Tele A/V paced, pt intermittently hypotensive, AM blood pressure meds held, MD aware. Cardiac drain removed at bedside, pt tolerated well, VSS post removal. Care ongoing.
[2017-01-06] MEDS: Insulin GLARgine 100 Unit/mL Syringe SUBQ SCH (21:11)
[2017-01-07] VITALS (7 sets, daily range): BP systolic 115–142; BP diastolic 47–93; PULSE 61–76; RESP 18–22; O2SAT 93–99
[2017-01-07] MEDS: Sodium Chloride LOK Flush 10 mL Syringe IVFLUSH SCH ×3 (00:30→16:41)
[2017-01-07] MEDS: CeFAZolin Inj 1 GM in IV Premix 1 EACH IV SCH ×3 (00:30→22:14)
--- NOTE | 2017-01-07 01:03 | PROG NOTE ---
[address] [address] PROGRESS NOTE PATIENT: JOSH APONTE : 1945 MR#: [id number] ADMIT: 12/31/2016 JOB ID: [id number] DATE: 01/06/2017 PROBLEM LIST: 1. Cardiac pacemaker in situ. 2. Status post iatrogenic hemopericardium, status post pericardial drain. 3. Hypertension. 4. Status post TAVR Lara KASHIF valve at aortic position. 5. Sick sinus syndrome. INTERVAL HISTORY: The patient remained hemodynamically stable, afebrile, feeling much better, she is up in a chair. No significant discharge or pain noted in the left infraclavicular area. No significant drainage was noted. As the day went on, her drainage has further reduced to 25 cc per last shift. Patient is otherwise doing well and taking medications. She, on monitor, is patent both A and V pacing intermittently. OBJECTIVE: Vital signs: Her blood pressure is 119/65, pulse of 60 and regular. Oxygen saturation of 96% on room air. She is alert, oriented. Breath sounds are equal on both sides. S1, S2 normal. There is mild ecchymosis noted in the left axillary region. The skin demonstrates some induration but no significant erythema, swelling or discharge noted. Lower extremities normal. LABORATORIES: White count is 6.3, hemoglobin of 10.5, hematocrit of 32.2 and platelets are 254. Chemistry panel: BUN of 28 and creatinine of 1.03. Serum glucose is 158. PROCEDURE: Using standard aseptic sterile technique, the pericardial drain was removed and sterile OpSite dressing was applied. Patient tolerated the procedure well. PLAN: Repeat limited echo tomorrow morning to assess for any reaccumulation of pericardial effusion. If the patient remains hemodynamically stable, I plan on discharging her on morning, which would be January 08, 2017. In the interim, no changes in her medication. TIME: Total time spent 35 minutes. SAUL
[2017-01-07] MEDS: Insulin LISPRO Low-Dose Scale SUBQ SCH ×4 (08:00→22:00)
[2017-01-07] MEDS: MeTOProlol XL 25 mg ER24 Tablet PO SCH ×2 (08:03→22:15)
[2017-01-07] MEDS: Tiotropium 18mcg/Cap 5 Capsule Inhaler Kit INHALATION SCH (08:04)
--- NOTE | 2017-01-07 08:24 | PROG NOTE ---
[address] [address] PROGRESS NOTE PATIENT: JOSH APONTE : 1945 MR#: [id number] ADMIT: 12/31/2016 JOB ID: [id number] DATE: 01/03/2017 SUBJECTIVE: When I saw the patient on that day she was resting comfortably. OBJECTIVE: Vital signs were stable. Pacemaker incision was clean, dry, and intact. There is no crepitus at the incision site, right chest, or neck. Lungs were clear to auscultation. Auscultation of the heart revealed normal S1 and S2 without murmurs, clicks, or rubs. Pericardial drain entry site was clean, dry, and intact. IMPRESSION AND PLAN: 1. Status post dual chamber pacemaker implantation: Pacing and sensing parameters were within normal limits. Chest x-ray was ordered to verify that there was no pneumothorax. 2. Hemopericardium: There continued to be drainage of serosanguineous fluid into the pericardial drain. 3. Acitivity: Patient is encouraged to get up and walk if she is able to. 4. Diet: Continue a heart healthy, counting carb diet. 5. Status post transcatheter aortic valve replacement: Continue aspirin and Plavix. MTDD
[2017-01-07] MEDS: Polyethylene Glycol (PEG) 17 Gm Powder PO PRN (12:11)
[2017-01-07] MEDS ORDERED: CeFAZolin Inj 2 GM in IV Premix 1 EACH IV ONE ×2 (13:00→19:00)
--- NOTE | 2017-01-07 14:15 | PROG NOTE ---
[address] [address] PROGRESS NOTE PATIENT: JOSH APONTE : 1945 MR#: [id number] ADMIT: 12/31/2016 JOB ID: [id number] DATE: 01/07/2017 PROBLEM LIST: 1. Cardiac pacemaker in situ. 2. Status post iatrogenic hemopericardium, status post pericardial drain. 3. Hypertension. 4. Status post TAVR. 5. Sick sinus syndrome. SUBJECTIVE: The patient remains hemodynamically stable, afebrile and she reports to me that she feels much better. She is sitting up in a chair. She reports that she has no significant pain. OBJECTIVE: No significant drainage was noted from either the pericardial drain site or the pacemaker incision site. Vital signs are stable. She is alert and oriented. Breath sounds are equal on both sides. Auscultation of the heart reveals normal S1 and S2 without murmurs, clicks or rubs. There is mild ecchymosis and some swelling on the left axillary region which is to be expected. There are no signs of infection and no crepitus. The skin demonstrates some induration but no significant erythema, swelling or discharge. LABORATORY RESULTS: White blood count 6.3, red blood count 3.63, hemoglobin 10.5, hematocrit 32.2, platelet count 254. Sodium 139, potassium 4.7, chloride 204, carbon dioxide 25, BUN 28, creatinine 1.03. PLAN: Will repeat a limited echo today to assess for any reaccumulation of the pericardial effusion. He the patient remains hemodynamically stable, will discharge her tomorrow morning which is January 08, 2017. Of note, I have also decreased dose for Ancef to 1 g twice a day per orders of Dr. Dickson. SAUL
--- NOTE | 2017-01-07 14:31 | NUR ---
STATUS Patient progressing towards planned outcomes. Minimal pain reported at PM insertion site, rating 2/10. PO pain medication refused when offered. Dressing to pericardial drain site, c/d/i. PM site well approximately with minor bruising and swelling, dressing changed. Vital signs stable. A-V paced per telemetry. Tolerating increased activity level, ambulating hallways without difficultly. Will continue to monitor.
--- NOTE | 2017-01-07 15:54 | NUR ---
Social Work Note: Readiness for Discharge Data& Assessment: EMR reviewed. Per MD pt is getting closer to being medically ready for discharge. SW met with pt and pt at bedside to confirm discharge plan and assess for any unmet needs. Pt had drain removed yesterday. Pt is ambulating the halls independently. Pt to transport home when medically ready. Pt denies any other needs a this time. SW to continue to follow if any needs arise. Plan: Anticipated discharge home via POV when medically ready. Pt denies any other needs a this time. SW to continue to follow if any needs arise. JOSE CARLOS Beck
[2017-01-07] MEDS: Insulin GLARgine 100 Unit/mL Syringe SUBQ SCH (22:20)
[2017-01-08 01:49] VITALS: BP 140/93; PULSE 62; RESP 20; O2SAT 96
[2017-01-08] MEDS: Sodium Chloride LOK Flush 10 mL Syringe IVFLUSH SCH ×2 (01:49→08:13)
[2017-01-08] MEDS: HYDROcodone-APAP 5-325 mg Tablet PO PRN (03:20)
[2017-01-08 03:37] VITALS: BP 131/68; PULSE 83; RESP 18; O2SAT 97
[2017-01-08 05:28] VITALS: PULSE 68
--- NOTE | 2017-01-08 05:35 | NUR ---
Pain pt c/o of burning pain in area of incision 12/31. Administered 2 tabs Hydrocodone and some ice and effective, No further complaints. Pt has been ambulating in hallway and room with no complications. Pt reminded of limitations from pacemaker placement. VSS and Tele SR Addendum: 01/08/17 at 0545 by ASHER LAWRENCE RN Correction: Tele is V paced not SR
[2017-01-08 08:00] VITALS: PULSE 60
[2017-01-08] MEDS: Insulin LISPRO Low-Dose Scale SUBQ SCH (08:00)
[2017-01-08] MEDS ORDERED: CeFAZolin Inj 2 GM in IV Premix 1 EACH IV ONE (08:00)
[2017-01-08] MEDS: MeTOProlol XL 25 mg ER24 Tablet PO SCH (08:10)
[2017-01-08] MEDS: CeFAZolin Inj 1 GM in IV Premix 1 EACH IV SCH (08:12)
[2017-01-08 08:30] VITALS: BP 128/67; PULSE 60; RESP 20; O2SAT 96
[2017-01-08] MEDS: Tiotropium 18mcg/Cap 5 Capsule Inhaler Kit INHALATION SCH (08:30)
[2017-01-08] MEDS ORDERED: CEPH-512 PO (08:39)
--- NOTE | 2017-01-08 08:55 | PCM.DIMED ---
Discharge Instructions Date of Service January 08, 2017 Dates of Hospitalization December 31, 2016 at 13:33 Discharge Diagnosis Discharge Diagnosis AFib with slow ventricular response. Diet Heart Healthy, Diabetic Activity Limited until seen by PCP Call your provider Fever or Chills, Shortness of breath, Bleeding, Chest pain, Weakness (unilateral ), Other (Signs of infection at the incision site) Patient Instructions Mid-level Provider (F9): Dinesh Winn PA-C Follow-up with Mid-level in: 1 week Dinesh Winn PA-C January 08, 2017 08:55
--- NOTE | 2017-01-08 10:54 | NUR ---
P: Bradycardia I: Pacemaker pacing without difficulty. Pacer site intact without drainage. Left arm sling on. Taking diet and fluids well. Voiding qs. Room air with sats 96%, Up in room independently. Saline lock dc'd with catheter intact. Pt dressed after tele box removed. Blood sugar this am 108 without coverage needed. Discharge instructions and RX with care notes given to pt. Son here to pick pt up and pt discharged 1050. E: Stable S: Alert and Oriented. Indicates understanding of discharge instructions. Care notes for antibiotic and pacemaker sent home with pt.
--- NOTE | 2017-01-10 06:53 | DIS ---
[address] [address] DISCHARGE SUMMARY PATIENT: JOSH APONTE : 1945 MR#: [id number] ADMIT: 12/31/2016 JOB ID: [id number] DIS: 01/08/2017 DATE OF ADMISSION: 12/31/2016 DATE OF DISCHARGE: 01/08/2017 DISCHARGE DIAGNOSIS: 1. Aortic valve disease, status post transcatheter aortic valve replacement six months ago. 2. Sick sinus syndrome, status post dual-chamber pacemaker implantation. 3. Type 2 diabetes. 4. Hyperlipidemia. 5. Hypertension. 6. Chronic obstructive pulmonary disease. PROCEDURES: 1. Implantation of a [employer] dual-chamber pacemaker. 2. Pericardiocentesis after an iatrogenic pericardial tamponade. HISTORY: The patient is a delightful 71-year-old woman with a known history of severe critical aortic stenosis, status post TAVR approximately six months ago, with a history of hypertension and diabetes, who was seen in the office for a new onset second-degree type 2 AV block. The patient underwent a transcutaneous aortic valve replacement procedure approximately six months ago at [facility]. She was undergoing cardiac rehab when she was noted to have a second-degree type 2 AV block in the setting of sinus bradycardia. She was scheduled for an appointment in our office. At that appointment, she reported no concerning or significant symptoms of dizziness, presyncope, or syncope. However, she did report overall lethargy and fatigue. Further evaluation revealed that her blood pressure was elevated at 180/80. An exercise treadmill stress test was performed. She was barely able to walk for 2-3 minutes. She did have an underlying sinus rhythm at that time. There were episodes of transient second-degree AV block, type 2, with 2:1 conduction. She was unable to increase her heart rate and was significantly fatigued and tired during the procedure. Given the history of a transcatheter aortic valve replacement, Dr. Dickson suspected that she had sick sinus syndrome with chronotropic incompetence. HOSPITAL COURSE: As such, the patient was brought to the cath lab radiology technician for a dual chamber pacemaker implantation. During the procedure, multiple attempts were made to access the left subclavian vein without success. The procedure was aborted, and the skin was closed. She was admitted to the [facility]. Initial chest x-ray done on January 01, 2017 showed no evidence of pneumothorax. On January 02, 2017, hospital day three, she was brought back to the catheterization lab where dual chamber pacemaker was successfully implanted. However, during the procedure, the patient became suddenly hypotensive and developed a weak thready pulse. Emergency echocardiography was performed which revealed a pericardial tamponade with right ventricular collapse. An emergency pericardiocentesis was successfully performed and a pericardial drain was put in place. After the procedure, she was admitted to the [facility] where she did well. Postprocedural chest x-ray revealed a small left apical pneumothorax and that the pacemaker leads were properly in place. The patient was placed on Ancef 1 g every 8 hours. On January 03, 2017, a chest x-ray revealed that the previously identified apical pneumothorax had resolved. January 04 through January 08, 2017: The patient remained stable. However, she continued to drain a concerning amount of serosanguineous fluid from the pericardial sac. On January 06, the drainage significantly subsided, and the pericardial drain was removed. Subsequent echocardiography was carried out on January 06 and on January 07. Those studies revealed a trivial pericardial effusion, and the patient was discharged on January 08. At discharge, vitals were stable. All incisions were clean, dry, and intact without signs of infection. There was no crepitus around the area of the pacemaker incision. DISCHARGE MEDICATIONS: 1. Keflex 500 mg four times a day. 2. Acetaminophen 650 mg four times a day as needed for pain. 3. Albuterol inhaler 2 puffs every 4 hours as needed for shortness of breath. 4. Aspirin 81 mg. 5. Atorvastatin 40 mg a day. 6. Vitamin D 2000 units a day. 7. Plavix 75 mg a day. 8. Colchicine 0.6 mg at night. 9. Insulin glargine 40 units with meals. 10. Insulin lispro 4 to 6 units subcu twice a day as needed for hyperglycemia. 11. Losartan 25 mg twice a day. 12. Metformin 1000 mg twice a day. 13. Metoprolol succinate 12.5 mg twice a day. 14. Fish oil one tablet once a day with meals. 15. Spiriva 1 inhaled capsule daily. 16. Triamcinolone cream 2 applications a day. DISPOSITION AND DISCHARGE INSTRUCTIONS: The patient was discharged to home and placed under the care of her family and friends the following instructions: 1. Eat a heart-healthy diet. 2. Limit activity until evaluated at [facility]. 3. Call a provider if she experiences fever, chills, shortness of breath, bleeding, chest pain, weakness, or signs of infection at the incision site. 4. Follow up at [facility] in one week. SAUL
== END 2017-01-08 10:42 | disposition home or self-care (01) | DRG 243 ==
LOC: SOU 13:33 → PCC 16:20 → CCU 01-02 20:07 → PCC 01-07 12:36
PROVIDERS: ADMIT Internal Medicine Cardiovascular Disease; ATTEND Internal Medicine Cardiovascular Disease
PROC: 0JJT0ZZ Inspection of Trunk Subcutaneous Tissue and Fascia, Open Approach (ICD-10-PCS; 2017-01-01)
PROC: B5171ZZ Fluoroscopy of Left Subclavian Vein using Low Osmolar Contrast (ICD-10-PCS; 2017-01-01)
PROC: 0JH606Z Insertion of Pacemaker, Dual Chamber into Chest Subcutaneous Tissue and Fascia, Open Approach (ICD-10-PCS; principal; 2017-01-02)
PROC: 02HK3JZ Insertion of Pacemaker Lead into Right Ventricle, Percutaneous Approach (ICD-10-PCS; 2017-01-02)
PROC: 0W9D30Z Drainage of Pericardial Cavity with Drainage Device, Percutaneous Approach (ICD-10-PCS; 2017-01-02)
PROC: 02H63JZ Insertion of Pacemaker Lead into Right Atrium, Percutaneous Approach (ICD-10-PCS; 2017-01-02)
DX: I49.5 Sick sinus syndrome (principal); I31.4 Cardiac tamponade; Z68.41 Body mass index [BMI] 40.0-44.9, adult; L76.32 Postprocedural hematoma of skin and subcutaneous tissue following other procedure; I97.790 Other intraoperative cardiac functional disturbances during cardiac surgery; E66.9 Obesity, unspecified; Z95.2 Presence of prosthetic heart valve; I44.1 Atrioventricular block, second degree; E78.5 Hyperlipidemia, unspecified; E11.9 Type 2 diabetes mellitus without complications; Z79.4 Long term (current) use of insulin; I10 Essential (primary) hypertension; J44.9 Chronic obstructive pulmonary disease, unspecified; Z53.8 Procedure and treatment not carried out for other reasons; Y83.1 Surgical operation with implant of artificial internal device as the cause of abnormal reaction of the patient, or of later complication, without mention of misadventure at the time of the procedure